=== PATIENT | female | born 1995 | race American Indian/Alaskan Native ===

== ENCOUNTER 2019-06-18 08:00 | Outpatient (CLI) | payer MEDICAID ==
[2019-06-18 18:41] LABS: BASOPHILS % (AUTO) 0.2 %; EOSINOPHILS # (AUTO) 0.2 10^3/uL (0.0-0.7); EOSINOPHILS % (AUTO) 1.8 %; LYMPHOCYTES # (AUTO) 1.3 10^3/uL (1.5-3.5); LYMPHOCYTES % (AUTO) 15.5 %; MEAN CORPUSCULAR HEMOGLOBIN 31.5 pg (27.0-31.0); MEAN CORPUSCULAR HGB CONC 33.2 g/dL (32.0-36.0); MEAN CORPUSCULAR VOLUME 94.8 fL (81.0-99.0); MEAN PLATELET VOLUME 10.5 fL (7.9-10.8); MONOCYTES # (AUTO) 0.4 10^3/uL (0.0-1.0); MONOCYTES % (AUTO) 4.8 %; NEUTROPHILS # (AUTO) 6.6 10^3/uL (1.5-6.6); NEUTROPHILS % (AUTO) 77.3 %; PLT - PLATELET COUNT 251 10^3/uL (130-450); RED BLOOD COUNT 3.49 10^6/uL (4.20-5.40); RED CELL DISTRIBUTION WIDTH 13.2 % (12.0-15.0); WHITE BLOOD COUNT 8.5 x10^3/uL (4.8-10.8)
== END 2019-06-18 23:59 | disposition home or self-care (01) ==
LOC: LAB.N 08:00
PROVIDERS: ATTEND Nurse Practitioner Gerontology
DX: D64.9 Anemia, unspecified (principal); N91.1 Secondary amenorrhea
CPT/HCPCS: 36415; 84702; 85025

== ENCOUNTER 2019-07-16 08:00 | Outpatient (CLI) | payer MEDICAID ==
[2019-07-16 22:04] LABS: TRICHOMONAS VAGINALIS DNA NEGATIVE (NEGATIVE)
== END 2019-07-16 23:59 | disposition home or self-care (01) ==
LOC: LAB.R 08:00
PROVIDERS: ATTEND Obstetrics & Gynecology
DX: Z34.80 Encounter for supervision of other normal pregnancy, unspecified trimester (principal)
CPT/HCPCS: 87491; 87591; 87661

== ENCOUNTER 2019-09-14 09:19 | Outpatient (CLI) | payer MEDICAID ==
--- NOTE | 2019-09-14 14:57 | Ultrasound Report ---
Reason: SUPERVISION OF NORMAL MULTIGRAVIDA Procedure Date: 09/14/2019 Accession Number: [id number] / [id number] Procedure: US - OB Detailed Eval CPT Code: FULL RESULT: EXAM: COMPLETE OBSTETRICAL ULTRASOUND EXAM DATE: 09/14/2019 09:55 AM. CLINICAL HISTORY: anatomic survey. COMPARISON: None. TECHNIQUE: Real-time sonographic evaluation of the fetus performed by the chief security and safety officer. Multiple veterans service representative static images were saved for review. DATING: Established EGA 34 weeks 1 day with ADELA 10/25/2019 based on working due date. EGA 34 weeks 2 days with ADELA 10/24/2019 based on LMP. EGA 35 weeks 6 days with ADELA 10/13/2019 based on the current ultrasound. GENERAL EVALUATION [place] . Cardiac activity: 145 bpm. movement: Visualized. Presentation: Cephalic. Placenta: Anterior position. No evidence for previa. Umbilical cord: 3 vessel cord. Central placental cord origin. Amniotic fluid: Subjectively normal. MVP 2.6 cm with BYRON 6.3 cm. BIOMETRY Bi-Parietal Diameter (BPD): 9.2 cm, 37 weeks 3 days Head Circumference (HC): 32.8 cm, 37 weeks 2 days Abdominal Circumference (AC): 30.8 cm, 34 weeks 5 days Femur Length (FL): 6.6 cm, 34 weeks 1 day Estimated Weight: 2600 g, 74th percentile for 34 weeks 1 day. ANATOMY The spine, 4 chamber heart and outflow tracts, stomach, abdominal wall and cord insertion, diaphragm, kidneys, bladder, and extremities were visualized and demonstrate no abnormality with the exception of the hands which could not be documented in the open position. The choroid plexus and lateral ventricles as well as the profile/nasal bone view and coronal face were not well seen. Open hands were not observed in real-time. MATERNAL STRUCTURES Uterus: Unremarkable. Cervix: Long and closed. Transabdominal length 4.6 cm. Right ovary/adnexa: Unremarkable. Left ovary/adnexa: Unremarkable. Free fluid: None. IMPRESSION: 1. [place] live intrauterine with gestational age 34 weeks 1 day based on physician stated working due date. 2. Estimated weight at the 74th percentile for assigned dating. 3. Limited examination with incomplete anatomy survey. Given the advanced gestational age, it is unclear whether the anatomy survey could be completed on repeat examination. 4. Borderline oligohydramnios, consider Doppler evaluation of cord. RADIA The call report notification system was initiated by Dr. Edward Johnston at 02:55 PM on 09/14/2019. ADDENDUM: 09/14/19 15:12 The above call report findings were discussed with Coy Marino by Dr. Edward Johnston at 03:12 PM on 09/14/2019. Given absence of intrauterine growth retardation, cord Doppler assessment is likely unnecessary.
== END 2019-09-14 09:20 | disposition home or self-care (01) ==
LOC: DI 09:19
PROVIDERS: ATTEND Obstetrics & Gynecology
DX: Z34.83 Encounter for supervision of other normal pregnancy, third trimester (principal)
CPT/HCPCS: 76811

== ENCOUNTER 2019-09-17 13:50 | Outpatient (CLI) | payer MEDICAID ==
[2019-09-17 15:21] LABS: BASOPHILS % (AUTO) 0.2 %; EOSINOPHILS # (AUTO) 0.1 10^3/uL (0.0-0.7); EOSINOPHILS % (AUTO) 1.7 %; HGB - HEMOGLOBIN 10.9 g/dL (12.0-16.0); LYMPHOCYTES # (AUTO) 1.4 10^3/uL (1.5-3.5); LYMPHOCYTES % (AUTO) 21.3 %; MEAN CORPUSCULAR HEMOGLOBIN 31.1 pg (27.0-31.0); MEAN CORPUSCULAR HGB CONC 34.2 g/dL (32.0-36.0); MEAN CORPUSCULAR VOLUME 90.9 fL (81.0-99.0); MEAN PLATELET VOLUME 10.6 fL (7.9-10.8); MONOCYTES # (AUTO) 0.4 10^3/uL (0.0-1.0); MONOCYTES % (AUTO) 5.6 %; NEUTROPHILS # (AUTO) 4.5 10^3/uL (1.5-6.6); NEUTROPHILS % (AUTO) 70.7 %; PLT - PLATELET COUNT 170 10^3/uL (130-450); RED BLOOD COUNT 3.51 10^6/uL (4.20-5.40); WHITE BLOOD COUNT 6.4 x10^3/uL (4.8-10.8)
[2019-09-18 11:07] LABS: HEPATITIS B SURFACE ANTIGEN NON-REACTIVE (NON-REACTIVE)
[2019-09-18 12:42] LABS: HIV AG/AB 4TH GEN NON-REACTIVE (NON-REACTIVE)
[2019-09-18 13:36] LABS: HEPATITIS C ANTIBODY NON-REACTIVE (NON-REACTIVE)
== END 2019-09-17 13:51 | disposition home or self-care (01) ==
LOC: LAB 13:50
PROVIDERS: ATTEND Obstetrics & Gynecology
DX: Z34.80 Encounter for supervision of other normal pregnancy, unspecified trimester (principal)
CPT/HCPCS: 36415; 81599; 82950; 85025; 86592; 86762; 86803; 86850; 86900; 86901; 87340; 87389

== ENCOUNTER 2019-10-01 08:00 | Outpatient (CLI) | payer MEDICAID ==
[2019-10-01 21:48] LABS: TRICHOMONAS VAGINALIS DNA NEGATIVE (NEGATIVE)
== END 2019-10-01 23:59 | disposition home or self-care (01) ==
LOC: LAB.R 08:00
PROVIDERS: ATTEND Obstetrics & Gynecology
DX: Z36.85 Encounter for antenatal screening for Streptococcus B (principal); Z11.3 Encounter for screening for infections with a predominantly sexual mode of transmission
CPT/HCPCS: 87491; 87591; 87661; 87797

== ENCOUNTER 2019-11-13 14:00 | Outpatient (CLI) | payer MEDICAID | END 2019-11-13 23:59 | disposition home or self-care (01) | LOC: LAB.R 14:00 | PROVIDERS: ATTEND Family Medicine | DX: R39.9 Unspecified symptoms and signs involving the genitourinary system (principal) | CPT/HCPCS: 87086; 87181 ==